=== PATIENT | female | born 1945 | race Caucasian/White ===

== ENCOUNTER 2016-08-27 08:16 | Emergency (ER) | payer OTHER, MEDICARE ==
--- NOTE | 2016-08-27 08:31 | EDPHY ---
H & P Time Seen by Provider: 08/27/16 08:31 HPI/ROS: CHIEF COMPLAINT: Headache HISTORY OF PRESENT ILLNESS: This 70-year-old woman has a remote history of breast cancer and had surgery on July 14 at [facility] in [place] for a very small pancreatic cancer. She is followed by Dr. Agnieszka Nobles here in [place]. But 3 weeks ago she developed a pretty severe migraine headache which lasted for 2 days and ever since then she has a headache about every other day worse with light and associated with nausea. It is not localized to any one part of her head today associated with tingling in both of her hands. Labs drawn yesterday showed white blood cell count 5000 with hematocrit 36 and platelet count 416. Sodium 138 and BUN creatinine 16 and 0.8 with glucose of 88. Headache currently has mild but it has been recurrent and severe over the past 3 weeks. No fever or chills or neck pain. No weakness in arms or legs. REVIEW OF SYSTEMS: Eye: no change in vision ENT: no sore throat Cardiac: no chest pain or syncope Pulmonary: no cough or SOB Abdomen: no vomiting, diarrhea, abdominal pain. Does have associated nausea Musculoskeletal: no back pain or neck pain. Skin: no rash Neuro: HPI, denies vertigo or ataxia Constitutional: no fever : no urinary symptoms A comprehensive 10 point review of systems is otherwise negative aside from elements mentioned in the history of present illness. PAST MEDICAL HISTORY: Breast cancer, pancreatic cancer, hysterectomy and oophorectomy. 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 Social history: Nonsmoker General Appearance: Alert and conversant, cooperative. Eyes: No scleral icterus. ENT, Mouth: Normal mucous membranes. Normal tympanic membranes, no facial swelling or tenderness. Respiratory: Normal respiratory effort, breath sounds equal, lungs are clear to auscultation. Cardiovascular: Regular rate and rhythm. Gastrointestinal: Abdomen is soft and non tender. Neurological: Alert and oriented x3. Normally conversant. Face symmetric, normal movement and sensation in all extremities. Normal [id number] bilaterally, no pronator drift. Skin: Warm and dry, no rashes. Musculoskeletal: No peripheral edema and no joint swelling. Normal range of motion of the neck, no meningeal signs. Psychiatric: Not agitated. Emergency Department course/MDM: Plan for MRI brain and MRV to evaluate for the possibility of venous clot or intracranial metastases. I think that carotid or vertebral dissection is not highly likely. Zofran 4 mg IV and acetaminophen 650 mg orally. Discussed results with the patient. She is comfortable being discharged with follow up with her primary care doctor and oncologist. Smoking Status: Never smoked Constitutional: Initial Vital Signs Temperature (C) 36.3 C 08/27/16 08:18 Heart Rate 96 08/27/16 08:18 Respiratory Rate 14 08/27/16 08:18 Blood Pressure 141/91 H 08/27/16 08:18 O2 Sat (%) 97 08/27/16 08:18 O2 Delivery Mode Room Air Allergies/Adverse Reactions: No Known Allergies Allergy (Verified 11/13/15 20:25) Home Medications: [facility] Decision Making - Diagnostics Imaging: MRI brain and MRV negative for acute process per Dr. Borden. No stroke or bleed or metastases or venous clot. Differential Diagnosis: Differential diagnosis considered for headache including but not limited to subarachnoid hemorrhage, migraine headache, tension headache and infectious causes such as meningitis, pharyngitis and sinusitis. - Data Points Medications Given: Discontinued Medications Acetaminophen (Tylenol) 650 mg PO EDNOW ONE Stop: 08/27/16 08:50 Last Admin: 08/27/16 09:36 Dose: 650 mg Ondansetron HCl (Zofran) 4 mg IVP EDNOW ONE Stop: 08/27/16 08:50 Last Admin: 08/27/16 09:16 Dose: 4 mg Departure - Departure Disposition: Home, Routine, Self-Care Clinical Impression: Headache Qualifiers: Headache type: unspecified Headache chronicity pattern: acute headache Intractability: not intractable Qualified Code(s): R51 - Headache Condition: Good Instructions: Acute Headache (ED) Referrals: Cleo Barksdale MD [Primary Care Provider] - As per Instructions
[2016-08-27] MEDS ORDERED: ONDANSETRON 4 MG/2 ML VIAL IVP ONE (08:49)
[2016-08-27] MEDS: ACETAMINOPHEN 325 MG TAB PO ONE ×2 (09:17→09:36)
[2016-08-27] MEDS ORDERED: GADOBUTROL 10 ML VIAL IVP ONE (09:20)
[2016-08-27 11:31] VITALS: BP 130/69; PULSE 77; RESP 18; TEMP 97.5; O2SAT 93
== END 2016-08-27 11:29 | disposition home or self-care (01) ==
DX: R51 Headache (principal); Z85.07 Personal history of malignant neoplasm of pancreas; Z85.3 Personal history of malignant neoplasm of breast
CPT/HCPCS: 70544; 70553; 96374; 99285; A9585; J2405

== ENCOUNTER → 2017-04-13 | Outpatient (CLI) | payer OTHER, MEDICARE | LOC: FIMAGING 17:22 | PROVIDERS: ATTEND Orthopaedic Surgery Hand Surgery | DX: S52.502A Unspecified fracture of the lower end of left radius, initial encounter for closed fracture (principal) ==